=== PATIENT | female | born 1945 | race Two or more races ===

== ENCOUNTER 2017-10-13 12:23 | Day surgery (SDC) | payer OTHER ==
[2017-10-13] MEDS ORDERED: PROPOFOL 20 ML (15:24)
== END 2017-10-13 16:46 | disposition home or self-care (01) ==
LOC: GIL 12:23
DX: Z12.11 Encounter for screening for malignant neoplasm of colon (principal); I10 Essential (primary) hypertension; E78.5 Hyperlipidemia, unspecified
CPT/HCPCS: 45378